=== PATIENT | female | born 1950 | race Caucasian/White ===

== ENCOUNTER 2019-10-07 15:16 | Observation (INO) | payer MEDICARE ==
--- NOTE | 2019-10-07 15:44 | ERPHSYRPT ---
- History of Present Illness Time Seen by Provider: 10/07/19 15:40 Source: patient Exam Limitations: no limitations Patient Subjective Stated Complaint: SOB Triage Nursing Assessment: Patient brought back to ED via w/c and transferred to bed with assist of 1. Patient A+o X3. Patient complains of SOB. Patient states she was at hospital getting labs drawn and while walking back to her vehicle with her walker and home O2 on patient became very SOB. Patient states she thinks it was due to wearing a mask. Patient's lung clear a/p jesenia. Edema noted to BLE 2+. Patient denies pain or discomfort. Physician History: Patient is a 69-year-old female presents to our ED with complaints of shortness of breath. Patient went to have her labs drawn and on the way back to her vehicle experienced profound shortness of breath. Patient attributed her shortness of breath to her facemask. Patient has a history of CHF. Patient has not taken her a.m. meds today. No associated chest pain. No nausea vomiting or diaphoresis. Symptoms are constant. Symptoms are moderate in intensity. Ambulation and exertion worsen symptoms. Patient voices no other complaints at this time. Timing/Duration: today Activities at Onset: activity Severity of Dyspnea-Max: moderate Severity of Dyspnea-Current: moderate Possible Cause: occasional episodes Modifying Factors: Improves With: activity Associated Symptoms: constant, ankle swelling, leg swelling Allergies/Adverse Reactions: aspirin Allergy (Verified 10/07/19 15:30) Penicillins Allergy (Verified 10/07/19 15:30) Sulfa (Sulfonamide Antibiotics) Allergy (Verified 10/07/19 15:30) Hx Influenza Vaccination/Date Given: Yes Hx Pneumococcal Vaccination/Date Given: Yes Immunizations Up to Date: Yes Travel Risk - International Travel Have you traveled outside of the country in past 3 weeks: No Have you or anyone close to you been diagnosed with or: No Do your reside in a community with a known COVID-19 case?: No If Yes where:: [facility] - Coronavirus Screening Has patient experienced Coronavirus symptoms: Yes Symptoms experienced: respiratory symptoms (i.e.Cought,shortness of breath) Date of respiratory symptoms onset:: 10/07/19 - Review of Systems Constitutional: No Symptoms, No Fever, No Chills Eyes: No Symptoms Ears, Nose, & Throat: No Symptoms Respiratory: Dyspnea, No Cough Cardiac: Edema, No Chest Pain, No Syncope Abdominal/Gastrointestinal: No Abdominal Pain, No Nausea, No Vomiting, No Diarrhea Genitourinary Symptoms: No Symptoms, No Dysuria Musculoskeletal: No Symptoms, No Back Pain, No Neck Pain Skin: No Symptoms, No Rash Neurological: No Symptoms, No Dizziness, No Focal Weakness, No Sensory Changes Psychological: No Symptoms Endocrine: No Symptoms Hematologic/Lymphatic: No Symptoms Immunological/Allergic: No Symptoms All Other Systems: Reviewed and Negative - Past Medical History ENT History: Cataracts Cardiac History: Hypertension Musculoskeletal History: Other GI Medical History: Hernia History: Renal Disease Psycho-Social History: No Pertinent History Female Reproductive Disorders: No Pertinent History Other Medical History: Nerve damage to spine from fall - Past Surgical History Past Surgical History: Yes Neuro Surgical History: No Pertinent History Cardiac: No Pertinent History Respiratory: No Pertinent History Gastrointestinal: Cholecystectomy, Hernia Repair Genitourinary: No Pertinent History Musculoskeletal: No Pertinent History Female Surgical History: Hysterectomy - Social History Smoking Status: Former smoker Exposure to second hand smoke: No Drug Use: none Patient Lives Alone: Yes - Female History Hx Now: No - Nursing Vital Signs Nursing Vital Signs: Initial Vital Signs Pulse Rate 90 10/07/19 15:19 Respiratory Rate 24 10/07/19 15:19 Blood Pressure 222/120 10/07/19 15:19 O2 Sat by Pulse Oximetry 96 10/07/19 15:19 Pain Scale Pain Intensity 5 - Physical Exam General Appearance: no apparent distress, alert Eye Exam: PERRL/EOMI Ears, Nose, Throat Exam: hearing grossly normal Neck Exam: normal inspection, supple Respiratory Exam: crackles/rales Cardiovascular/Chest Exam: normal heart sounds, regular rate/rhythm Abdominal/Gastrointestinal Exam: soft, No tenderness, No distention, No mass Extremity Exam: non-tender, normal range of motion, normal inspection, no calf tenderness, No no pedal edema (2+ pitting edema bilateral lower extremities.) Peripheral Pulses Exam: dorsalis-pedis (R): 1+, dorsalis-pedis (L): 1+ Neurologic Exam: alert, oriented x 3, cooperative, 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 nml as tested, sensation nml, No motor deficits Skin Exam: normal color, warm, No dry SpO2 Interpretation: normal SpO2: 96 O2 Delivery: Room Air - Course Nursing assessment & vital signs reviewed: Yes EKG Interpreted by Me: RATE, Sinus Rhythm, NORMAL AXIS, NORMAL INTERVALS ( Lateral TWI) - Radiology Exams Chest X-ray Interpretation: Teleradiologist Report (Mild pulmonary edema.) Ordered Tests: Active Orders 24 hr Category Date Time Status Office Clerk Assistant STAT Care 10/07/19 15:42 Active EKG-ER Only STAT Care 10/07/19 15:42 Active IV Insertion STAT Care 10/07/19 15:42 Active Pulse Oximetry (ED) STAT Care 10/07/19 15:42 Active CHEST 1 VIEW (PORTABLE) Stat Exams 10/07/19 15:42 Completed CBC W DIFF Stat Lab 10/07/19 15:50 Completed NT PRO BNP Stat Lab 10/07/19 15:50 Completed TROPONIN Q3H Lab 10/07/19 15:50 Completed TROPONIN Q3H Lab 10/07/19 18:45 Ordered TROPONIN Q3H Lab 10/07/19 21:45 Ordered TROPONIN Q3H Lab 10/08/19 00:45 Ordered TROPONIN Q3H Lab 10/08/19 03:45 Ordered UA W/RFX UR CULTURE Stat Lab 10/07/19 16:25 Received Lab/Rad Data: Laboratory Result Diagrams 10/07/19 15:50 Laboratory Results 10/07/19 10/07/19 10/07/19 Range/Units 15:50 15:50 15:50 WBC 3.7 L (4.0-10.5) K/mm3 RBC 3.55 L (4.1-5.4) M/mm3 Hgb 9.9 L (12.0-16.0) gm/dl Hct 32.3 L (35-47) % MCV 91.0 (78-100) fl MCH 27.9 (26-32) pg MCHC 30.7 L (32-36) g/dl RDW 14.4 H (11.5-14.0) % Plt Count 211 (150-450) K/mm3 MPV 9.6 (7.5-11.0) fl Gran % 61.0 (36.0-66.0) % Eos # (Auto) 0.09 (0-0.5) Absolute Lymphs (auto) 0.99 L (1.0-4.6) Absolute Monos (auto) 0.33 (0.0-1.3) Lymphocytes % 27.0 (24.0-44.0) % Monocytes % 9.0 (0.0-12.0) % Eosinophils % 2.5 (0.00-5.0) % Basophils % 0.5 (0.0-0.4) % Absolute Granulocytes 2.24 (1.4-6.9) Basophils # 0.02 (0-0.4) Troponin I < 0.012 (0.000-0.034) ng/mL NT-Pro-B Natriuret Pep 4780 H (0-900) pg/mL - Progress Progress: improved Air Movement: fair Progress Note: 10/07/19 17:22 Patient reassessed. Lasix administered. Patient feels better. BNP elevated. Chest x-ray shows pulmonary edema. Physical exam significant for pitting edema bilateral lower extremities. In light of our findings we will admit patient for CHF exacerbation. Case discussed with Dr. Weller who accepts admission to observation. Case discussed with Dr. Ingram who agrees with our plan of care. Plan of care discussed with patient. She agrees to admission to [facility] for further evaluation and treatment. Discussed with Dr.: Ki Will see patient in: hospital (observation) Counseled pt/family regarding: lab results, diagnosis, rad results - Departure Departure Disposition: Home, Observation Clinical Impression: CHF (congestive heart failure), Elevated brain natriuretic peptide (BNP) level , Pulmonary edema, Cardiomegaly, Shortness of breath, Abnormal EKG Condition: Stable Critical Care Time: No Referrals: KINGSLEY WHEAT MD [Primary Care Provider] - Instructions: Heart Failure
--- NOTE | 2019-10-07 16:02 | XRAY ---
Indication: Short of breath. Comparison: None Portable chest demonstrates overlying large abdomen pannus obscuring left lung base. Elsewhere cardiomegaly, vascular prominence, and mild interstitial edema favoring mild/early cardiac decompensation. Superimposed pneumonia not completely excluded. Bony thorax intact with mild degenerative changes.
[2019-10-07 16:21] LABS: Absolute Neutrophil Ct (ANC) 2.24 (1.4-6.9); BASOPHIL % 0.5 % (0.0-0.4); Basophil (Absolute #) 0.02 (0-0.4); Eosinophil % 2.5 % (0.00-5.0); Eosinophil (Absolute #) 0.09 (0-0.5); Hematocrit 32.3 % (35-47); Hemoglobin 9.9 gm/dl (12.0-16.0); Lymphocyte (Absolute #) 0.99 (1.0-4.6); Mean Corpuscular Hemoglobin 27.9 pg (26-32); Mean Corpuscular Hgb Concent. 30.7 g/dl (32-36); Mean Platelet Volume 9.6 fl (7.5-11.0); Monocyte (Absolute #) 0.33 (0.0-1.3); Platelet Count 211 K/mm3 (150-450); Red Blood Count 3.55 M/mm3 (4.1-5.4); Red Cell Distribution Width 14.4 % (11.5-14.0); White Blood Count 3.7 K/mm3 (4.0-10.5)
[2019-10-07 16:37] LABS: Appearance CLEAR (CLEAR); Bilirubin NEGATIVE (NEGATIVE); Blood NEGATIVE Ery/ul (0-5); Glucose NEGATIVE (NEGATIVE); Ketones NEGATIVE (NEGATIVE); Leukocyte Esterase NEGATIVE (NEGATIVE); Nitrite NEGATIVE (NEGATIVE); Protein,Urine Dip NEGATIVE (Negative); Specific Gravity 1.011 (1.005-1.025); Urobilinogen NEGATIVE mg/dL (0-1)
[2019-10-07 16:39] LABS: INFLUENZA A NEGATIVE (NEGATIVE); INFLUENZA B NEGATIVE (NEGATIVE); RESPIRATORY SYNCTIAL VIRUS NEGATIVE (Negative)
[2019-10-07] MEDS ORDERED: Lasix 20 MG/2 ML IV STA (16:51)
[2019-10-07] MEDS ORDERED: Lasix 40 MG/4 ML ONE (16:56)
[2019-10-07 17:07] LABS: ALBUMIN 3.8 g/dL (3.5-5.0); ALKALINE PHOSPHATASE 52 U/L (38-126); ANION GAP 11.8 MEQ/L (5-15); BLOOD UREA NITROGEN 17 mg/dL (7-17); CHLORIDE 105 mmol/L (98-107); Calcium 9.2 mg/dL (8.4-10.2); Carbon Dioxide 28 mmol/L (22-30); Glucose 89 mg/dL (74-106); Potassium 4.3 mmol/L (3.5-5.1); SGOT/AST 25 U/L (14-36); SGPT/ALT 12 U/L (0-35); SODIUM 140 mmol/L (137-145)
[2019-10-07] MEDS ORDERED: xanAX 0.5 MG PO PRN (20:02)
[2019-10-07] MEDS: PROVENTIL 2.5 MG/3 ML NEB IH SCH (20:26)
[2019-10-07] MEDS ORDERED: IMODIUM 2 MG PO PRN (21:28)
[2019-10-07] MEDS ORDERED: Lasix 20 MG/2 ML IV ONE (21:30)
[2019-10-07] MEDS ORDERED: Lasix 20 MG/2 ML ONE (21:34)
[2019-10-07] MEDS: NORCO 5/325 MG PO PRN (21:44)
[2019-10-07] MEDS ORDERED: COREG 12.5 MG PO ONE (21:45)
[2019-10-07] MEDS ORDERED: Zanaflex 4 MG PO SCH (22:00)
[2019-10-07] MEDS ORDERED: Ventolin Hfa MDI IH SCH (22:00)
[2019-10-07] MEDS ORDERED: Mirapex 0.5 MG Tablet PO SCH (22:00)
[2019-10-07] MEDS: Ranexa 500 MG PO SCH (22:31)
[2019-10-07] MEDS: COREG 12.5 MG PO SCH (22:31)
[2019-10-07] MEDS: Neurontin 400 MG PO SCH ×2 (22:33→22:36)
[2019-10-08 04:07] LABS: Absolute Neutrophil Ct (ANC) 2.73 (1.4-6.9); BASOPHIL % 0.5 % (0.0-0.4); Basophil (Absolute #) 0.02 (0-0.4); Eosinophil % 1.7 % (0.00-5.0); Eosinophil (Absolute #) 0.07 (0-0.5); Hematocrit 34.3 % (35-47); Hemoglobin 10.6 gm/dl (12.0-16.0); Lymphocyte (Absolute #) 1.05 (1.0-4.6); Lymphocytes % 24.8 % (24.0-44.0); Mean Corpuscular Hemoglobin 27.8 pg (26-32); Mean Corpuscular Hgb Concent. 30.9 g/dl (32-36); Mean Platelet Volume 8.9 fl (7.5-11.0); Monocyte (Absolute #) 0.37 (0.0-1.3); Monocytes % 8.7 % (0.0-12.0); Neutrophil % 64.3 % (36.0-66.0); Platelet Count 182 K/mm3 (150-450); Red Blood Count 3.81 M/mm3 (4.1-5.4); Red Cell Distribution Width 14.3 % (11.5-14.0); White Blood Count 4.2 K/mm3 (4.0-10.5)
[2019-10-08 04:19] LABS: ANION GAP 9.9 MEQ/L (5-15); BLOOD UREA NITROGEN 17 mg/dL (7-17); CHLORIDE 98 mmol/L (98-107); Carbon Dioxide 36 mmol/L (22-30); Creatinine 1 0.83 mg/dL (0.52-1.04); Glucose 101 mg/dL (74-106); NT PRO BNP 6020 pg/mL (0-900); Potassium 3.7 mmol/L (3.5-5.1); SODIUM 139 mmol/L (137-145)
[2019-10-08] MEDS: NORCO 5/325 MG PO PRN (05:14)
[2019-10-08] MEDS ORDERED: NON-FORMULARY ITEM (Ondansetron Hcl [Zofran] 8 MG) PO PRN (07:08)
[2019-10-08] MEDS ORDERED: ZOFRAN ODT 4 MG PO PRN (07:13)
[2019-10-08] MEDS: PROVENTIL 2.5 MG/3 ML NEB IH SCH (07:25)
[2019-10-08] MEDS ORDERED: VITAMIN D PO SCH (08:00)
[2019-10-08] MEDS ORDERED: Vitamin B-12 500 MCG PO SCH (08:00)
[2019-10-08] MEDS ORDERED: ENTRESTO 49 MG-51 MG TABLET PO SCH (08:00)
[2019-10-08] MEDS ORDERED: PATIENT OWN MEDICATION IH SCH (08:00)
[2019-10-08] MEDS: Ranexa 500 MG PO SCH (08:10)
[2019-10-08] MEDS: COREG 12.5 MG PO SCH (08:13)
[2019-10-08] MEDS: Neurontin 400 MG PO SCH (08:18)
[2019-10-08] MEDS ORDERED: SYNTHROID 75 MCG PO SCH (10:00)
[2019-10-08] MEDS ORDERED: NON-FORMULARY ITEM (Sacubitril/Valsartan [Entresto 24 Mg-26 Mg Tablet] 1 EACH) PO SCH (10:00)
[2019-10-08] MEDS ORDERED: NON-FORMULARY ITEM (Cyanocobalamin (Vitamin B-12) [Vitamin B-12] 1,000 MCG) PO SCH (10:00)
[2019-10-08] MEDS ORDERED: NON-FORMULARY ITEM (Calcium Carbonate [Calcium] 600 MG) PO SCH (10:00)
[2019-10-08] MEDS ORDERED: NON-FORMULARY ITEM (Cholecalciferol (Vitamin D3) [Vitamin D3] 1,000 UNIT) PO SCH (10:00)
[2019-10-08] MEDS ORDERED: NON-FORMULARY ITEM (Umeclidinium Brm/Vilanterol Tr [Anoro Ellipta 62.5-25 Mcg Inh] 1 EACH) IH SCH (10:00)
[2019-10-08] MEDS ORDERED: PLAVIX 75 MG Tablet PO SCH (10:00)
[2019-10-08] MEDS ORDERED: Paxil 20 MG PO SCH (10:00)
[2019-10-08] MEDS ORDERED: Imdur 60MG PO SCH (10:00)
[2019-10-08] MEDS ORDERED: Calcium 500MG W/Vit D Tablet PO SCH (10:00)
[2019-10-08] MEDS ORDERED: Protonix 40MG Tablet PO SCH (10:00)
[2019-10-08] MEDS ORDERED: ENOXAPARIN SODIUM SQ SCH (10:00)
[2019-10-08] MEDS ORDERED: Lasix 20 MG/2 ML IV SCH (10:00)
--- NOTE | 2019-10-08 11:12 | PCM.SSS ---
History of Present Illness - Chief Complaint Chief Complaint: CHF, Pulmonary Edema History of Present Illness: is a 69 year old female who came to [place] to have labs drawn but had EVANS walking from parking lot and went to ER. 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 - Review of Systems Constitutional: No Symptoms Eyes: No Symptoms Ears, Nose, & Throat: No Symptoms Respiratory: Short Of Breath (EVANS) Cardiac: Edema (chronic but improving per patient) Abdominal/Gastrointestinal: No Symptoms Genitourinary Symptoms: No Symptoms Musculoskeletal: Other (no acute joint pain or injury) Skin: No Symptoms Neurological: No Symptoms Psychological: Anxiety Endocrine: No Symptoms Hematologic/Lymphatic: Other (is on Plavix) Medications & Allergies Home Medications: Home Medication List ALPRAZolam [Alprazolam] 0.5 mg PO BID PRN PRN 10/07/19 [History Confirmed ] Bumetanide 1 mg PO DAILY 10/07/19 [History Confirmed 10/07/19] Calcium Carbonate [Calcium] 600 mg PO DAILY 10/07/19 [History Confirmed 10/07/19 ] Cholecalciferol (Vitamin D3) [Vitamin D3] 1,000 unit PO DAILY 10/07/19 [History Confirmed 10/07/19] Clopidogrel Bisulfate 75 mg [PLAVIX 75 MG Tablet] 75 mg PO DAILY 10/07/19 [History Confirmed 10/07/19] Cyanocobalamin (Vitamin B-12) [Vitamin B-12] 1,000 mcg PO DAILY 10/07/19 [ History Confirmed 10/07/19] Gabapentin 400 mg [Neurontin 400 MG] 400 mg PO TID 10/07/19 [History Confirmed 10/07/19] Hydrocodone Bitartrate [Zohydro ER] 30 mg PO BID PRN 10/07/19 [History Confirmed 10/07/19] Isosorbide Mononitrate 60 mg [Imdur 60MG] 120 mg PO DAILY 10/07/19 [History Confirmed 10/07/19] Levothyroxine Sodium 75 Mcg [Synthroid 75 Mcg] 75 mcg PO DAILY 10/07/19 [ History Confirmed 10/07/19] Ondansetron HCl [Zofran] 8 mg PO BID PRN 10/07/19 [History Confirmed 10/07/19] PANTOPRAZOLE 40 mg Tablet [Protonix 40MG Tablet] 40 mg PO DAILY 10/07/19 [ History Confirmed 10/07/19] Paroxetine HCl [Paxil] 20 mg PO DAILY 10/07/19 [History Confirmed 10/07/19] Pramipexole Di-HCl [Pramipexole Dihydrochloride] 0.25 mg PO HS 10/07/19 [ History Confirmed 10/07/19] Ranolazine 500 MG [Ranexa 500 MG] 1,000 mg PO BID 10/07/19 [History Confirmed 10/07/19] Tizanidine HCl [Zanaflex] 2 mg PO HS 10/07/19 [History Confirmed 10/07/19] Umeclidinium Brm/Vilanterol Tr [Anoro Ellipta 62.5-25 Mcg INH] 1 each IH DAILY 10/07/19 [History Confirmed 10/07/19] Sacubitril/Valsartan [Entresto 24 mg-26 mg Tablet] 2 each PO BID #0 10/08/19 [ Rx Confirmed 10/07/19] carvediloL [Carvedilol] 12.5 mg PO TID #90 10/08/19 [Rx Confirmed 10/07/19] Allergies/Adverse Reactions: Allergies Allergy/AdvReac Type Severity Reaction Status Date / Time aspirin Allergy Verified 10/07/19 15:30 Penicillins Allergy Verified 10/07/19 15:30 Sulfa (Sulfonamide Allergy Verified 10/07/19 15:30 Antibiotics) - Past Medical History Past Medical History: Yes Neurological History: No Pertinent History ENT History: Cataracts Cardiac History: Congestive Heart Failure (viral Cardiomyopathy per Snipper Dr Merritt), Hypertension, Myocardial Infarction (ME) Respiratory History: CHF, COPD Endocrine Medical History: Diabetes Type II, Hypothyroidism Musculoskelatal History: Other GI Medical History: Hernia History: Renal Disease Pyscho-Social History: Anxiety Reproductive Disorders: No Pertinent History Comment: Nerve damage to spine from fall - Female History Are you now?: No - Past Surgical History Past Surgical History: Yes Neuro Surgical History: No Pertinent History Cardiac History: Cardiac Stent Respiratory Surgery: No Pertinent History GI Surgical History: Cholecystectomy, Hernia Repair Genitourinary Surgical Hx: No Pertinent History Musculskeletal Surgical Hx: No Pertinent History Female Surgical History: Hysterectomy - Social History Smoking Status: Former smoker Exposure to second hand smoke: No Alcohol: None Drug Use: none - Physical Exam Vital Signs: Vital Signs - 24 hr Temp Pulse Resp BP Pulse Ox 10/08/19 07:50 98.1 F 69 20 191/83 99 10/08/19 07:29 71 18 98 10/08/19 04:00 97.6 F 66 20 169/75 96 10/07/19 23:58 97.7 F 65 18 117/57 98 10/07/19 20:26 67 19 96 10/07/19 19:36 98.1 F 67 20 205/95 98 10/07/19 18:09 98.1 F 86 18 205/95 98 10/07/19 17:53 96 10/07/19 17:24 96 10/07/19 16:13 76 20 207/95 100 10/07/19 15:52 96 10/07/19 15:19 90 24 222/120 96 Oxygen-Last 24 hours Oxygen Flowrate (L/min)-RT 3 General Appearance: no apparent distress Neurologic Exam: alert, oriented x 3, other (a little anxious) Ears, Nose, Throat Exam: moist mucous membranes Neck Exam: other (left thyroid palpable,nontender) Respiratory Exam: diminished breath sounds (bases) Cardiovascular Exam: regular rate/rhythm, edema (1+/4pitting ankles and feet) Gastrointestinal/Abdomen Exam: soft (obese,nontender) Pelvic Exam: not done Rectal Exam: not done Back Exam: other (increased thoracic kyphosis) Extremity Exam: pedal edema Skin Exam: normal color, warm, dry Results - Labs Lab/Micro Results: Accuchecks Accucheck Value: 91 Lab Results-Last 24 Hours 10/07/19 10/07/19 10/07/19 Range/Units 15:50 15:50 15:50 WBC 3.7 L (4.0-10.5) K/mm3 RBC 3.55 L (4.1-5.4) M/mm3 Hgb 9.9 L (12.0-16.0) gm/dl Hct 32.3 L (35-47) % MCV 91.0 (78-100) fl MCH 27.9 (26-32) pg MCHC 30.7 L (32-36) g/dl RDW 14.4 H (11.5-14.0) % Plt Count 211 (150-450) K/mm3 MPV 9.6 (7.5-11.0) fl Gran % 61.0 (36.0-66.0) % Eos # (Auto) 0.09 (0-0.5) Absolute Lymphs (auto) 0.99 L (1.0-4.6) Absolute Monos (auto) 0.33 (0.0-1.3) Lymphocytes % 27.0 (24.0-44.0) % Monocytes % 9.0 (0.0-12.0) % Eosinophils % 2.5 (0.00-5.0) % Basophils % 0.5 (0.0-0.4) % Absolute Granulocytes 2.24 (1.4-6.9) Basophils # 0.02 (0-0.4) Sodium (137-145) mmol/L Potassium (3.5-5.1) mmol/L Chloride (98-107) mmol/L Carbon Dioxide (22-30) mmol/L Anion Gap (5-15) MEQ/L BUN (7-17) mg/dL Creatinine (0.52-1.04) mg/dL Estimated GFR ML/MIN Glucose (74-106) mg/dL Hemoglobin A1c (4.5-6.0) % Calcium (8.4-10.2) mg/dL Total Bilirubin (0.2-1.3) mg/dL AST (14-36) U/L ALT (0-35) U/L Alkaline Phosphatase (38-126) U/L Troponin I < 0.012 (0.000-0.034) ng/mL NT-Pro-B Natriuret Pep 4780 H (0-900) pg/mL Serum Total Protein (6.3-8.2) g/dL Albumin (3.5-5.0) g/dL TSH 3rd Generation (0.47-4.68) mIU/L Urine Color (YELLOW) Urine Appearance (CLEAR) Urine pH (5-6) Ur Specific [place] (1.005-1.025) Urine Protein (Negative) Urine Ketones (NEGATIVE) Urine Blood (0-5) Juan Ramon/ul Urine Nitrite (NEGATIVE) Urine Bilirubin (NEGATIVE) Urine Urobilinogen (0-1) mg/dL Ur Leukocyte Esterase (NEGATIVE) Urine WBC (Auto) (0-5) /HPF Urine RBC (Auto) (0-2) /HPF U Epithel Cells (Auto) (FEW) /HPF Urine Bacteria (Auto) (NEGATIVE) /HPF Urine Culture Reflexed (NO) Urine Glucose (NEGATIVE) mg/dL Influenza Type A Ag (NEGATIVE) Influenza Type B Ag (NEGATIVE) RSV (PCR) (Negative) 10/07/19 10/07/19 10/07/19 Range/Units 16:25 16:57 19:00 WBC (4.0-10.5) K/mm3 RBC (4.1-5.4) M/mm3 Hgb (12.0-16.0) gm/dl Hct (35-47) % MCV (78-100) fl MCH (26-32) pg MCHC (32-36) g/dl RDW (11.5-14.0) % Plt Count (150-450) K/mm3 MPV (7.5-11.0) fl Gran % (36.0-66.0) % Eos # (Auto) (0-0.5) Absolute Lymphs (auto) (1.0-4.6) Absolute Monos (auto) (0.0-1.3) Lymphocytes % (24.0-44.0) % Monocytes % (0.0-12.0) % Eosinophils % (0.00-5.0) % Basophils % (0.0-0.4) % Absolute Granulocytes (1.4-6.9) Basophils # (0-0.4) Sodium 140 (137-145) mmol/L Potassium 4.3 (3.5-5.1) mmol/L Chloride 105 (98-107) mmol/L Carbon Dioxide 28 (22-30) mmol/L Anion Gap 11.8 (5-15) MEQ/L BUN 17 (7-17) mg/dL Creatinine 0.70 (0.52-1.04) mg/dL Estimated GFR > 60.0 ML/MIN Glucose 89 (74-106) mg/dL Hemoglobin A1c (4.5-6.0) % Calcium 9.2 (8.4-10.2) mg/dL Total Bilirubin 0.50 (0.2-1.3) mg/dL AST 25 (14-36) U/L ALT 12 (0-35) U/L Alkaline Phosphatase 52 (38-126) U/L Troponin I < 0.012 (0.000-0.034) ng/mL NT-Pro-B Natriuret Pep (0-900) pg/mL Serum Total Protein 7.0 (6.3-8.2) g/dL Albumin 3.8 (3.5-5.0) g/dL TSH 3rd Generation (0.47-4.68) mIU/L Urine Color YELLOW (YELLOW) Urine Appearance CLEAR (CLEAR) Urine pH 6.0 (5-6) Ur Specific [place] 1.011 (1.005-1.025) Urine Protein NEGATIVE (Negative) Urine Ketones NEGATIVE (NEGATIVE) Urine Blood NEGATIVE (0-5) Juan Ramon/ul Urine Nitrite NEGATIVE (NEGATIVE) Urine Bilirubin NEGATIVE (NEGATIVE) Urine Urobilinogen NEGATIVE (0-1) mg/dL Ur Leukocyte Esterase NEGATIVE (NEGATIVE) Urine WBC (Auto) NONE (0-5) /HPF Urine RBC (Auto) NONE (0-2) /HPF U Epithel Cells (Auto) NONE (FEW) /HPF Urine Bacteria (Auto) NONE (NEGATIVE) /HPF Urine Culture Reflexed NO (NO) Urine Glucose NEGATIVE (NEGATIVE) mg/dL Influenza Type A Ag (NEGATIVE) Influenza Type B Ag (NEGATIVE) RSV (PCR) (Negative) 10/07/19 10/07/19 10/07/19 Range/Units 21:51 Unknown Unknown WBC (4.0-10.5) K/mm3 RBC (4.1-5.4) M/mm3 Hgb (12.0-16.0) gm/dl Hct (35-47) % MCV (78-100) fl MCH (26-32) pg MCHC (32-36) g/dl RDW (11.5-14.0) % Plt Count (150-450) K/mm3 MPV (7.5-11.0) fl Gran % (36.0-66.0) % Eos # (Auto) (0-0.5) Absolute Lymphs (auto) (1.0-4.6) Absolute Monos (auto) (0.0-1.3) Lymphocytes % (24.0-44.0) % Monocytes % (0.0-12.0) % Eosinophils % (0.00-5.0) % Basophils % (0.0-0.4) % Absolute Granulocytes (1.4-6.9) Basophils # (0-0.4) Sodium (137-145) mmol/L Potassium (3.5-5.1) mmol/L Chloride (98-107) mmol/L Carbon Dioxide (22-30) mmol/L Anion Gap (5-15) MEQ/L BUN (7-17) mg/dL Creatinine (0.52-1.04) mg/dL Estimated GFR ML/MIN Glucose (74-106) mg/dL Hemoglobin A1c 5.37 (4.5-6.0) % Calcium (8.4-10.2) mg/dL Total Bilirubin (0.2-1.3) mg/dL AST (14-36) U/L ALT (0-35) U/L Alkaline Phosphatase (38-126) U/L Troponin I < 0.012 (0.000-0.034) ng/mL NT-Pro-B Natriuret Pep (0-900) pg/mL Serum Total Protein (6.3-8.2) g/dL Albumin (3.5-5.0) g/dL TSH 3rd Generation (0.47-4.68) mIU/L Urine Color (YELLOW) Urine Appearance (CLEAR) Urine pH (5-6) Ur Specific [place] (1.005-1.025) Urine Protein (Negative) Urine Ketones (NEGATIVE) Urine Blood (0-5) Juan Ramon/ul Urine Nitrite (NEGATIVE) Urine Bilirubin (NEGATIVE) Urine Urobilinogen (0-1) mg/dL Ur Leukocyte Esterase (NEGATIVE) Urine WBC (Auto) (0-5) /HPF Urine RBC (Auto) (0-2) /HPF U Epithel Cells (Auto) (FEW) /HPF Urine Bacteria (Auto) (NEGATIVE) /HPF Urine Culture Reflexed (NO) Urine Glucose (NEGATIVE) mg/dL Influenza Type A Ag NEGATIVE (NEGATIVE) Influenza Type B Ag NEGATIVE (NEGATIVE) RSV (PCR) NEGATIVE (Negative) 10/08/19 10/08/19 10/08/19 Range/Units 00:50 03:53 03:53 WBC (4.0-10.5) K/mm3 RBC (4.1-5.4) M/mm3 Hgb (12.0-16.0) gm/dl Hct (35-47) % MCV (78-100) fl MCH (26-32) pg MCHC (32-36) g/dl RDW (11.5-14.0) % Plt Count (150-450) K/mm3 MPV (7.5-11.0) fl Gran % (36.0-66.0) % Eos # (Auto) (0-0.5) Absolute Lymphs (auto) (1.0-4.6) Absolute Monos (auto) (0.0-1.3) Lymphocytes % (24.0-44.0) % Monocytes % (0.0-12.0) % Eosinophils % (0.00-5.0) % Basophils % (0.0-0.4) % Absolute Granulocytes (1.4-6.9) Basophils # (0-0.4) Sodium 139 (137-145) mmol/L Potassium 3.7 (3.5-5.1) mmol/L Chloride 98 (98-107) mmol/L Carbon Dioxide 36 H (22-30) mmol/L Anion Gap 9.9 (5-15) MEQ/L BUN 17 (7-17) mg/dL Creatinine 0.83 (0.52-1.04) mg/dL Estimated GFR > 60.0 ML/MIN Glucose 101 (74-106) mg/dL Hemoglobin A1c (4.5-6.0) % Calcium 9.0 (8.4-10.2) mg/dL Total Bilirubin (0.2-1.3) mg/dL AST (14-36) U/L ALT (0-35) U/L Alkaline Phosphatase (38-126) U/L Troponin I < 0.012 < 0.012 (0.000-0.034) ng/mL NT-Pro-B Natriuret Pep 6020 H (0-900) pg/mL Serum Total Protein (6.3-8.2) g/dL Albumin (3.5-5.0) g/dL TSH 3rd Generation (0.47-4.68) mIU/L Urine Color (YELLOW) Urine Appearance (CLEAR) Urine pH (5-6) Ur Specific [place] (1.005-1.025) Urine Protein (Negative) Urine Ketones (NEGATIVE) Urine Blood (0-5) Juan Ramon/ul Urine Nitrite (NEGATIVE) Urine Bilirubin (NEGATIVE) Urine Urobilinogen (0-1) mg/dL Ur Leukocyte Esterase (NEGATIVE) Urine WBC (Auto) (0-5) /HPF Urine RBC (Auto) (0-2) /HPF U Epithel Cells (Auto) (FEW) /HPF Urine Bacteria (Auto) (NEGATIVE) /HPF Urine Culture Reflexed (NO) Urine Glucose (NEGATIVE) mg/dL Influenza Type A Ag (NEGATIVE) Influenza Type B Ag (NEGATIVE) RSV (PCR) (Negative) 10/08/19 10/08/19 Range/Units 03:53 03:53 WBC 4.2 (4.0-10.5) K/mm3 RBC 3.81 L (4.1-5.4) M/mm3 Hgb 10.6 L (12.0-16.0) gm/dl Hct 34.3 L (35-47) % MCV 90.0 (78-100) fl MCH 27.8 (26-32) pg MCHC 30.9 L (32-36) g/dl RDW 14.3 H (11.5-14.0) % Plt Count 182 (150-450) K/mm3 MPV 8.9 (7.5-11.0) fl Gran % 64.3 (36.0-66.0) % Eos # (Auto) 0.07 (0-0.5) Absolute Lymphs (auto) 1.05 (1.0-4.6) Absolute Monos (auto) 0.37 (0.0-1.3) Lymphocytes % 24.8 (24.0-44.0) % Monocytes % 8.7 (0.0-12.0) % Eosinophils % 1.7 (0.00-5.0) % Basophils % 0.5 (0.0-0.4) % Absolute Granulocytes 2.73 (1.4-6.9) Basophils # 0.02 (0-0.4) Sodium (137-145) mmol/L Potassium (3.5-5.1) mmol/L Chloride (98-107) mmol/L Carbon Dioxide (22-30) mmol/L Anion Gap (5-15) MEQ/L BUN (7-17) mg/dL Creatinine (0.52-1.04) mg/dL Estimated GFR ML/MIN Glucose (74-106) mg/dL Hemoglobin A1c (4.5-6.0) % Calcium (8.4-10.2) mg/dL Total Bilirubin (0.2-1.3) mg/dL AST (14-36) U/L ALT (0-35) U/L Alkaline Phosphatase (38-126) U/L Troponin I (0.000-0.034) ng/mL NT-Pro-B Natriuret Pep (0-900) pg/mL Serum Total Protein (6.3-8.2) g/dL Albumin (3.5-5.0) g/dL TSH 3rd Generation 3.920 (0.47-4.68) mIU/L Urine Color (YELLOW) Urine Appearance (CLEAR) Urine pH (5-6) Ur Specific [place] (1.005-1.025) Urine Protein (Negative) Urine Ketones (NEGATIVE) Urine Blood (0-5) Juan Ramon/ul Urine Nitrite (NEGATIVE) Urine Bilirubin (NEGATIVE) Urine Urobilinogen (0-1) mg/dL Ur Leukocyte Esterase (NEGATIVE) Urine WBC (Auto) (0-5) /HPF Urine RBC (Auto) (0-2) /HPF U Epithel Cells (Auto) (FEW) /HPF Urine Bacteria (Auto) (NEGATIVE) /HPF Urine Culture Reflexed (NO) Urine Glucose (NEGATIVE) mg/dL Influenza Type A Ag (NEGATIVE) Influenza Type B Ag (NEGATIVE) RSV (PCR) (Negative) Accuchecks Accucheck Value: 91 - Radiology Impressions Radiology Exams & Impressions: Radiology Procedures Category Date Time Status CHEST 1 VIEW (PORTABLE) Stat Exams 10/07/19 15:42 Completed - Other Procedures and Tests Respiratory Therapy 10/07/19 17:53 Oxygen NASAL CANNULA 2 lpm 10/07/19 20:29 Respiratory Therapy Assessment DAILY Assessment/Plan (1) Cardiomyopathy Current Visit: Yes Status: Chronic Qualifiers: Cardiomyopathy type: viral Qualified Code(s): B33.24 - Viral cardiomyopathy Code(s): I42.9 - CARDIOMYOPATHY, UNSPECIFIED (2) CHF (congestive heart failure) Current Visit: Yes Status: Acute Qualifiers: Heart failure chronicity: acute on chronic Code(s): I50.9 - HEART FAILURE, UNSPECIFIED (3) Elevated brain natriuretic peptide (BNP) level Current Visit: Yes Status: Acute Assessment & Plan: Dr Merritt gave instruction by phone to increase Entresto double dose bid and and in crease current Coreg 12.5mg from bid to tid. Code(s): R79.89 - OTHER SPECIFIED ABNORMAL FINDINGS OF BLOOD CHEMISTRY (4) DM2 (diabetes mellitus, type 2) Current Visit: Yes Status: Chronic Hospital Summary - Hospital Course Hospital Course: Patient presented to ER c/o SOB on exertion and was dg exacerbation of CHF . CXR showed mild pulmonary edema ,negative troponin series. Her BNP was elevated. She was admitted to obsevation to complete troponin series which were all negative and to treat volume overload. BNP remained elevated but LE edema improved and she diuresed on IV lasix. Her B/P remains elevated and pulse is 69 -70, O2 sats mid 90s. Patient will see her Snipper Dr Merritt . He gave instruction to increase her Entresto 24mg-26mg bid to 49mg-51mg bid ,also to increase Coreg 12.5mg bid to tid. He will see her in 1 week . She is to call his office tomorrow for appt. She is to have labs BNP,BMP and magnesium done 2 days before appt. - Vitals & Intake/Output Vital Signs: Vital Signs Temperature 98.1 F 10/08/19 07:50 Pulse Rate 69 10/08/19 07:50 Respiratory Rate 20 10/08/19 07:50 Blood Pressure 191/83 10/08/19 07:50 O2 Sat by Pulse Oximetry 99 10/08/19 07:50 Intake & Output: Intake & Output 10/05/19 10/06/19 10/07/19 10/08/19 11:59 11:59 11:59 11:59 Intake Total 2660 Output Total 3700 Balance -1040 Weight 114.7 kg - Lab Result Diagrams: 10/08/19 03:53 10/08/19 03:53 Lab Results-Last 24 Hrs: Accuchecks Accucheck Value: 91 Lab Results-Last 24 Hours 10/07/19 10/07/19 10/07/19 Range/Units 15:50 15:50 15:50 WBC 3.7 L (4.0-10.5) K/mm3 RBC 3.55 L (4.1-5.4) M/mm3 Hgb 9.9 L (12.0-16.0) gm/dl Hct 32.3 L (35-47) % MCV 91.0 (78-100) fl MCH 27.9 (26-32) pg MCHC 30.7 L (32-36) g/dl RDW 14.4 H (11.5-14.0) % Plt Count 211 (150-450) K/mm3 MPV 9.6 (7.5-11.0) fl Gran % 61.0 (36.0-66.0) % Eos # (Auto) 0.09 (0-0.5) Absolute Lymphs (auto) 0.99 L (1.0-4.6) Absolute Monos (auto) 0.33 (0.0-1.3) Lymphocytes % 27.0 (24.0-44.0) % Monocytes % 9.0 (0.0-12.0) % Eosinophils % 2.5 (0.00-5.0) % Basophils % 0.5 (0.0-0.4) % Absolute Granulocytes 2.24 (1.4-6.9) Basophils # 0.02 (0-0.4) Sodium (137-145) mmol/L Potassium (3.5-5.1) mmol/L Chloride (98-107) mmol/L Carbon Dioxide (22-30) mmol/L Anion Gap (5-15) MEQ/L BUN (7-17) mg/dL Creatinine (0.52-1.04) mg/dL Estimated GFR ML/MIN Glucose (74-106) mg/dL Hemoglobin A1c (4.5-6.0) % Calcium (8.4-10.2) mg/dL Total Bilirubin (0.2-1.3) mg/dL AST (14-36) U/L ALT (0-35) U/L Alkaline Phosphatase (38-126) U/L Troponin I < 0.012 (0.000-0.034) ng/mL NT-Pro-B Natriuret Pep 4780 H (0-900) pg/mL Serum Total Protein (6.3-8.2) g/dL Albumin (3.5-5.0) g/dL TSH 3rd Generation (0.47-4.68) mIU/L Urine Color (YELLOW) Urine Appearance (CLEAR) Urine pH (5-6) Ur Specific [place] (1.005-1.025) Urine Protein (Negative) Urine Ketones (NEGATIVE) Urine Blood (0-5) Juan Ramon/ul Urine Nitrite (NEGATIVE) Urine Bilirubin (NEGATIVE) Urine Urobilinogen (0-1) mg/dL Ur Leukocyte Esterase (NEGATIVE) Urine WBC (Auto) (0-5) /HPF Urine RBC (Auto) (0-2) /HPF U Epithel Cells (Auto) (FEW) /HPF Urine Bacteria (Auto) (NEGATIVE) /HPF Urine Culture Reflexed (NO) Urine Glucose (NEGATIVE) mg/dL Influenza Type A Ag (NEGATIVE) Influenza Type B Ag (NEGATIVE) RSV (PCR) (Negative) 10/07/19 10/07/19 10/07/19 Range/Units 16:25 16:57 19:00 WBC (4.0-10.5) K/mm3 RBC (4.1-5.4) M/mm3 Hgb (12.0-16.0) gm/dl Hct (35-47) % MCV (78-100) fl MCH (26-32) pg MCHC (32-36) g/dl RDW (11.5-14.0) % Plt Count (150-450) K/mm3 MPV (7.5-11.0) fl Gran % (36.0-66.0) % Eos # (Auto) (0-0.5) Absolute Lymphs (auto) (1.0-4.6) Absolute Monos (auto) (0.0-1.3) Lymphocytes % (24.0-44.0) % Monocytes % (0.0-12.0) % Eosinophils % (0.00-5.0) % Basophils % (0.0-0.4) % Absolute Granulocytes (1.4-6.9) Basophils # (0-0.4) Sodium 140 (137-145) mmol/L Potassium 4.3 (3.5-5.1) mmol/L Chloride 105 (98-107) mmol/L Carbon Dioxide 28 (22-30) mmol/L Anion Gap 11.8 (5-15) MEQ/L BUN 17 (7-17) mg/dL Creatinine 0.70 (0.52-1.04) mg/dL Estimated GFR > 60.0 ML/MIN Glucose 89 (74-106) mg/dL Hemoglobin A1c (4.5-6.0) % Calcium 9.2 (8.4-10.2) mg/dL Total Bilirubin 0.50 (0.2-1.3) mg/dL AST 25 (14-36) U/L ALT 12 (0-35) U/L Alkaline Phosphatase 52 (38-126) U/L Troponin I < 0.012 (0.000-0.034) ng/mL NT-Pro-B Natriuret Pep (0-900) pg/mL Serum Total Protein 7.0 (6.3-8.2) g/dL Albumin 3.8 (3.5-5.0) g/dL TSH 3rd Generation (0.47-4.68) mIU/L Urine Color YELLOW (YELLOW) Urine Appearance CLEAR (CLEAR) Urine pH 6.0 (5-6) Ur Specific [place] 1.011 (1.005-1.025) Urine Protein NEGATIVE (Negative) Urine Ketones NEGATIVE (NEGATIVE) Urine Blood NEGATIVE (0-5) Juan Ramon/ul Urine Nitrite NEGATIVE (NEGATIVE) Urine Bilirubin NEGATIVE (NEGATIVE) Urine Urobilinogen NEGATIVE (0-1) mg/dL Ur Leukocyte Esterase NEGATIVE (NEGATIVE) Urine WBC (Auto) NONE (0-5) /HPF Urine RBC (Auto) NONE (0-2) /HPF U Epithel Cells (Auto) NONE (FEW) /HPF Urine Bacteria (Auto) NONE (NEGATIVE) /HPF Urine Culture Reflexed NO (NO) Urine Glucose NEGATIVE (NEGATIVE) mg/dL Influenza Type A Ag (NEGATIVE) Influenza Type B Ag (NEGATIVE) RSV (PCR) (Negative) 10/07/19 10/07/19 10/07/19 Range/Units 21:51 Unknown Unknown WBC (4.0-10.5) K/mm3 RBC (4.1-5.4) M/mm3 Hgb (12.0-16.0) gm/dl Hct (35-47) % MCV (78-100) fl MCH (26-32) pg MCHC (32-36) g/dl RDW (11.5-14.0) % Plt Count (150-450) K/mm3 MPV (7.5-11.0) fl Gran % (36.0-66.0) % Eos # (Auto) (0-0.5) Absolute Lymphs (auto) (1.0-4.6) Absolute Monos (auto) (0.0-1.3) Lymphocytes % (24.0-44.0) % Monocytes % (0.0-12.0) % Eosinophils % (0.00-5.0) % Basophils % (0.0-0.4) % Absolute Granulocytes (1.4-6.9) Basophils # (0-0.4) Sodium (137-145) mmol/L Potassium (3.5-5.1) mmol/L Chloride (98-107) mmol/L Carbon Dioxide (22-30) mmol/L Anion Gap (5-15) MEQ/L BUN (7-17) mg/dL Creatinine (0.52-1.04) mg/dL Estimated GFR ML/MIN Glucose (74-106) mg/dL Hemoglobin A1c 5.37 (4.5-6.0) % Calcium (8.4-10.2) mg/dL Total Bilirubin (0.2-1.3) mg/dL AST (14-36) U/L ALT (0-35) U/L Alkaline Phosphatase (38-126) U/L Troponin I < 0.012 (0.000-0.034) ng/mL NT-Pro-B Natriuret Pep (0-900) pg/mL Serum Total Protein (6.3-8.2) g/dL Albumin (3.5-5.0) g/dL TSH 3rd Generation (0.47-4.68) mIU/L Urine Color (YELLOW) Urine Appearance (CLEAR) Urine pH (5-6) Ur Specific [place] (1.005-1.025) Urine Protein (Negative) Urine Ketones (NEGATIVE) Urine Blood (0-5) Juan Ramon/ul Urine Nitrite (NEGATIVE) Urine Bilirubin (NEGATIVE) Urine Urobilinogen (0-1) mg/dL Ur Leukocyte Esterase (NEGATIVE) Urine WBC (Auto) (0-5) /HPF Urine RBC (Auto) (0-2) /HPF U Epithel Cells (Auto) (FEW) /HPF Urine Bacteria (Auto) (NEGATIVE) /HPF Urine Culture Reflexed (NO) Urine Glucose (NEGATIVE) mg/dL Influenza Type A Ag NEGATIVE (NEGATIVE) Influenza Type B Ag NEGATIVE (NEGATIVE) RSV (PCR) NEGATIVE (Negative) 10/08/19 10/08/19 10/08/19 Range/Units 00:50 03:53 03:53 WBC (4.0-10.5) K/mm3 RBC (4.1-5.4) M/mm3 Hgb (12.0-16.0) gm/dl Hct (35-47) % MCV (78-100) fl MCH (26-32) pg MCHC (32-36) g/dl RDW (11.5-14.0) % Plt Count (150-450) K/mm3 MPV (7.5-11.0) fl Gran % (36.0-66.0) % Eos # (Auto) (0-0.5) Absolute Lymphs (auto) (1.0-4.6) Absolute Monos (auto) (0.0-1.3) Lymphocytes % (24.0-44.0) % Monocytes % (0.0-12.0) % Eosinophils % (0.00-5.0) % Basophils % (0.0-0.4) % Absolute Granulocytes (1.4-6.9) Basophils # (0-0.4) Sodium 139 (137-145) mmol/L Potassium 3.7 (3.5-5.1) mmol/L Chloride 98 (98-107) mmol/L Carbon Dioxide 36 H (22-30) mmol/L Anion Gap 9.9 (5-15) MEQ/L BUN 17 (7-17) mg/dL Creatinine 0.83 (0.52-1.04) mg/dL Estimated GFR > 60.0 ML/MIN Glucose 101 (74-106) mg/dL Hemoglobin A1c (4.5-6.0) % Calcium 9.0 (8.4-10.2) mg/dL Total Bilirubin (0.2-1.3) mg/dL AST (14-36) U/L ALT (0-35) U/L Alkaline Phosphatase (38-126) U/L Troponin I < 0.012 < 0.012 (0.000-0.034) ng/mL NT-Pro-B Natriuret Pep 6020 H (0-900) pg/mL Serum Total Protein (6.3-8.2) g/dL Albumin (3.5-5.0) g/dL TSH 3rd Generation (0.47-4.68) mIU/L Urine Color (YELLOW) Urine Appearance (CLEAR) Urine pH (5-6) Ur Specific [place] (1.005-1.025) Urine Protein (Negative) Urine Ketones (NEGATIVE) Urine Blood (0-5) Juan Ramon/ul Urine Nitrite (NEGATIVE) Urine Bilirubin (NEGATIVE) Urine Urobilinogen (0-1) mg/dL Ur Leukocyte Esterase (NEGATIVE) Urine WBC (Auto) (0-5) /HPF Urine RBC (Auto) (0-2) /HPF U Epithel Cells (Auto) (FEW) /HPF Urine Bacteria (Auto) (NEGATIVE) /HPF Urine Culture Reflexed (NO) Urine Glucose (NEGATIVE) mg/dL Influenza Type A Ag (NEGATIVE) Influenza Type B Ag (NEGATIVE) RSV (PCR) (Negative) 10/08/19 10/08/19 Range/Units 03:53 03:53 WBC 4.2 (4.0-10.5) K/mm3 RBC 3.81 L (4.1-5.4) M/mm3 Hgb 10.6 L (12.0-16.0) gm/dl Hct 34.3 L (35-47) % MCV 90.0 (78-100) fl MCH 27.8 (26-32) pg MCHC 30.9 L (32-36) g/dl RDW 14.3 H (11.5-14.0) % Plt Count 182 (150-450) K/mm3 MPV 8.9 (7.5-11.0) fl Gran % 64.3 (36.0-66.0) % Eos # (Auto) 0.07 (0-0.5) Absolute Lymphs (auto) 1.05 (1.0-4.6) Absolute Monos (auto) 0.37 (0.0-1.3) Lymphocytes % 24.8 (24.0-44.0) % Monocytes % 8.7 (0.0-12.0) % Eosinophils % 1.7 (0.00-5.0) % Basophils % 0.5 (0.0-0.4) % Absolute Granulocytes 2.73 (1.4-6.9) Basophils # 0.02 (0-0.4) Sodium (137-145) mmol/L Potassium (3.5-5.1) mmol/L Chloride (98-107) mmol/L Carbon Dioxide (22-30) mmol/L Anion Gap (5-15) MEQ/L BUN (7-17) mg/dL Creatinine (0.52-1.04) mg/dL Estimated GFR ML/MIN Glucose (74-106) mg/dL Hemoglobin A1c (4.5-6.0) % Calcium (8.4-10.2) mg/dL Total Bilirubin (0.2-1.3) mg/dL AST (14-36) U/L ALT (0-35) U/L Alkaline Phosphatase (38-126) U/L Troponin I (0.000-0.034) ng/mL NT-Pro-B Natriuret Pep (0-900) pg/mL Serum Total Protein (6.3-8.2) g/dL Albumin (3.5-5.0) g/dL TSH 3rd Generation 3.920 (0.47-4.68) mIU/L Urine Color (YELLOW) Urine Appearance (CLEAR) Urine pH (5-6) Ur Specific [place] (1.005-1.025) Urine Protein (Negative) Urine Ketones (NEGATIVE) Urine Blood (0-5) Juan Ramon/ul Urine Nitrite (NEGATIVE) Urine Bilirubin (NEGATIVE) Urine Urobilinogen (0-1) mg/dL Ur Leukocyte Esterase (NEGATIVE) Urine WBC (Auto) (0-5) /HPF Urine RBC (Auto) (0-2) /HPF U Epithel Cells (Auto) (FEW) /HPF Urine Bacteria (Auto) (NEGATIVE) /HPF Urine Culture Reflexed (NO) Urine Glucose (NEGATIVE) mg/dL Influenza Type A Ag (NEGATIVE) Influenza Type B Ag (NEGATIVE) RSV (PCR) (Negative) Micro Results-Entire Visit: Accuchecks Accucheck Value: 91 - Radiology Exams Ordered Rad Exams-Entire Visit: Radiology Procedures Category Date Time Status CHEST 1 VIEW (PORTABLE) Stat Exams 10/07/19 15:42 Completed - Procedures and Test Procedures and Tests throughout Hospitalization: Therapy Orders & Screens 10/07/19 17:53 Oxygen NASAL CANNULA 2 lpm Comment: Diagnosis: CHF 10/07/19 20:29 Respiratory Therapy Assessment DAILY Comment: Diagnosis: CHF, Pulmonary Edema - Discharge Disposition: Home, Self-Care Condition: Stable Prescriptions: Continue Levothyroxine Sodium 75 Mcg [Synthroid 75 Mcg] 75 mcg PO DAILY Hydrocodone Bitartrate [Zohydro ER] 30 mg PO BID PRN PRN Reason: Pain Isosorbide Mononitrate 60 mg [Imdur 60MG] 120 mg PO DAILY Ondansetron HCl [Zofran] 8 mg PO BID PRN PRN Reason: Nausea Tizanidine HCl [Zanaflex] 2 mg PO HS Pramipexole Di-HCl [Pramipexole Dihydrochloride] 0.25 mg PO HS Paroxetine HCl [Paxil] 20 mg PO DAILY Gabapentin 400 mg [Neurontin 400 MG] 400 mg PO TID Ranolazine 500 MG [Ranexa 500 MG] 1,000 mg PO BID Clopidogrel Bisulfate 75 mg [PLAVIX 75 MG Tablet] 75 mg PO DAILY Bumetanide 1 mg PO DAILY Umeclidinium Brm/Vilanterol Tr [Anoro Ellipta 62.5-25 Mcg INH] 1 each IH DAILY PANTOPRAZOLE 40 mg Tablet [Protonix 40MG Tablet] 40 mg PO DAILY Cyanocobalamin (Vitamin B-12) [Vitamin B-12] 1,000 mcg PO DAILY Cholecalciferol (Vitamin D3) [Vitamin D3] 1,000 unit PO DAILY Calcium Carbonate [Calcium] 600 mg PO DAILY ALPRAZolam [Alprazolam] 0.5 mg PO BID PRN PRN PRN Reason: Anxiety Changed carvediloL [Carvedilol] 12.5 mg PO TID #90 Sacubitril/Valsartan [Entresto 24 mg-26 mg Tablet] 2 each PO BID #0 Instructions: Heart Failure, Adult (DC) Follow up with: KIKO MERRITT [CONSULTING PHYSICIAN] - 1 Week KINGSLEY WHEAT MD [Primary Care Provider] - 10/15/19 10:15 am Forms: Discharge Instructions
[2019-10-08 12:05] VITALS: BP 124/66; PULSE 80; O2SAT 98
[2019-10-08] MEDS ORDERED: Lasix 20 MG/2 ML IV ONE (21:30)
== END 2019-10-08 12:20 | disposition home health service (06) ==
LOC: ED 15:16 → MED SURG 17:41
PROVIDERS: ADMIT Family Medicine; ATTEND Family Medicine
DX: I42.9 Cardiomyopathy, unspecified (principal); I11.0 Hypertensive heart disease with heart failure; I50.9 Heart failure, unspecified; E11.9 Type 2 diabetes mellitus without complications; E03.9 Hypothyroidism, unspecified; R79.89 Other specified abnormal findings of blood chemistry; J44.9 Chronic obstructive pulmonary disease, unspecified; Z79.01 Long term (current) use of anticoagulants; Z79.899 Other long term (current) drug therapy
CPT/HCPCS: 36000; 36415; 71045; 80048; 80053; 81001; 82962; 83036; 83880; 84443; 84484; 85025; 87631; 93005; 93041; 93268; 94640; 94760; 96374; 99285; J1940; J7609; A9270-GY; G0378